=== PATIENT | female | born 1950 | race Caucasian/White ===

== ENCOUNTER 2017-03-05 09:28 | Outpatient (CLI) | payer MEDICARE, BC | END 2017-03-05 09:29 | disposition home or self-care (01) | LOC: BICBD 09:28 | PROVIDERS: ATTEND Internal Medicine | DX: Z13.820 Encounter for screening for osteoporosis (principal); M85.89 Other specified disorders of bone density and structure, multiple sites; E83.52 Hypercalcemia | CPT/HCPCS: 77080; 80048; 83970 ==

== ENCOUNTER 2017-04-02 07:50 | Outpatient (CLI) | payer MEDICARE, BC | END 2017-04-02 07:51 | disposition home or self-care (01) | LOC: BICULT 07:50 | PROVIDERS: ATTEND Internal Medicine Gastroenterology | DX: R10.11 Right upper quadrant pain (principal); K76.0 Fatty (change of) liver, not elsewhere classified; Z90.49 Acquired absence of other specified parts of digestive tract | CPT/HCPCS: 76700 ==

== ENCOUNTER 2017-06-17 13:00 | Outpatient (CLI) | payer OTHER | END 2017-06-17 13:01 | disposition home or self-care (01) | LOC: DTY/OP 13:00 | PROVIDERS: ATTEND Internal Medicine | DX: E66.9 Obesity, unspecified (principal) | CPT/HCPCS: 97802 ==

== ENCOUNTER 2017-08-18 13:59 | Outpatient (CLI) | payer MEDICARE, BC | END 2017-08-18 14:00 | disposition home or self-care (01) | LOC: BICRAD 13:59 | PROVIDERS: ATTEND Internal Medicine | DX: M25.562 Pain in left knee (principal); M79.672 Pain in left foot ==

== ENCOUNTER 2018-04-05 09:26 | Outpatient (CLI) | payer MEDICARE, BC | END 2018-04-05 09:27 | disposition home or self-care (01) | LOC: BICMAMMO 09:26 | PROVIDERS: ATTEND Internal Medicine | DX: Z12.31 Encounter for screening mammogram for malignant neoplasm of breast (principal); Z80.3 Family history of malignant neoplasm of breast | CPT/HCPCS: 77063; 77067 ==

== ENCOUNTER 2018-12-14 15:09 | Outpatient (CLI) | payer MEDICARE, BC ==
--- NOTE | 2018-12-14 15:38 | RAD ---
Exam: Lumbar spine 2 views HISTORY: Right-sided sciatica. Low back pain. Comparison: None FINDINGS: AP and lateral weightbearing views demonstrate five lumbar type vertebrae. Lumbar spine david tebral body height is maintained. No fracture. Grade 1 retrolisthesis of L2 to upon L3 and L3 upon L4. Vacuum disc phenomenon at L3-L4. Moderate los s of disc space at L2-L3. No evidence of spondylolysis. IMPRESSION: Degenerative changes lumbar spine as above. MRI is recommended. Transcribed Date/Time: 12/14/2018 4:00 PM
--- NOTE | 2018-12-14 15:39 | RAD ---
Exam:2 views right hip HISTORY: Pain. COMPARISON: None FINDINGS: The femoral head is maintained. Hip joint space symmetric. No fracture. IMPRESSION: Unremarkable 2 views right hip
--- NOTE | 2018-12-14 15:47 | RAD ---
Exam: 3 views of the sacroiliac joints HISTORY: Right sided sciatica. FINDINGS: Sacral joints are patent and symmetric. Visualized sacral ala are intact. IMPRESSION: Unremarkable radiographs of the sacral iliac joints.
== END 2018-12-14 15:10 | disposition home or self-care (01) ==
LOC: BICRAD 15:09
PROVIDERS: ATTEND Internal Medicine
DX: M25.551 Pain in right hip (principal); M54.31 Sciatica, right side; M47.816 Spondylosis without myelopathy or radiculopathy, lumbar region
CPT/HCPCS: 72100; 72202

== ENCOUNTER 2019-01-02 09:56 | Outpatient (CLI) | payer MEDICARE, BC ==
--- NOTE | 2019-01-02 11:15 | MRI ---
MRI lumbar spine without contrast: 01/02/2019 COMPARISON: None HISTORY: Lumbar degenerative disc disease, low back pain with right lower extremity radiculopathy TECHNIQUE: Multiplanar multisequence MR imaging of the lumbar spine without contrast FINDINGS: Sagittal STIR imaging demonstrates no focal area of osseous marrow edema. On the basis of 5 lumbar type vertebral bodies, the conus medullaris terminates at L1 level. T12-L1: No significant central canal or neural foraminal stenosis. L1-2: Mild bilateral facet hypertrophy with no significant central canal or neural foraminal stenosis . L2-3: There is disc space narrowing and disc desiccation with anterior osteophyte formation and mild disc bulge. Mild bilateral facet hypertrophy. No significant central canal or neural foraminal stenosis. L3-4: Mild bilateral facet hypertrophy. There is disc space narrowing with disc desiccation and mild disc bulge. There is anterior osteophyte formation. There is severe right-sided neural foraminal stenosis. No significant central canal or left neural foraminal stenosis. L4-5: Bilateral facet hypertrophy with hypertrophy of the ligamentum flavum. Moderate right and sever e left neural foraminal stenosis. No significant central canal stenosis. Disc desiccation. L5-S1: Mild left neural foraminal stenosis. Mild bilateral facet hypertrophy. No significant central canal or right neural foraminal stenosis. Image retroperitoneal structures demonstrate no acute findings. IMPRESSION: Lumbar spine degenerative change as detailed above. Findings include severe left neural f oraminal stenosis at L4-5 and severe right neural foraminal stenosis at L3-4.
== END 2019-01-02 09:57 | disposition home or self-care (01) ==
LOC: BICMRI 09:56
PROVIDERS: ATTEND Internal Medicine
DX: M51.36 Other intervertebral disc degeneration, lumbar region (principal); M47.816 Spondylosis without myelopathy or radiculopathy, lumbar region; M48.061 Spinal stenosis, lumbar region without neurogenic claudication
CPT/HCPCS: 72148

== ENCOUNTER 2019-04-12 11:05 | Outpatient (CLI) | payer MEDICARE, BC ==
--- NOTE | 2019-04-12 11:27 | MMO ---
Bilateral MAMMO Bilat Screen [facility]. CLINICAL HISTORY: Patient is 68 years old and is seen for screening. The patient has no family history of breast cancer. The patient has no personal history of cancer. The patient has a history of bilateral Excisional Biopsy in 1993 - benign. VIEWS: The views performed were: bilateral craniocaudal with tomosynthesis and bilateral mediolateral oblique with tomosynthesis. FILMS COMPARED: The present examination has been compared to prior imaging studies performed at [facility] on 11/15/2009, 03/31/2011, 06/25/2016 and 04/05/2018. This study has been interpreted with the assistance of computer-aided detection. MAMMOGRAM FINDINGS: The breasts are heterogeneously dense, which could obscure a lesion on mammography. There are stable benign appearing calcifications seen in both breasts. There are no suspicious masses, suspicious calcifications, or new areas of architectural distortion. IMPRESSION: THERE IS NO MAMMOGRAPHIC EVIDENCE OF MALIGNANCY. A ROUTINE FOLLOW-UP MAMMOGRAM IN 1 YEAR IS RECOMMENDED. THE RESULTS OF THIS EXAM WERE SENT TO THE PATIENT. ACR BI-RADS Category 2 - Benign finding MAMMOGRAPHY NOTE: 1. A negative mammogram report should not delay a biopsy if a dominant of clinically suspicious mass is present. 2. Approximately 10% to 15% of breast cancers are not detected by mammography. 3. Adenosis and dense breasts may obscure an underlying neoplasm. Reported by: ELA VERMA MD Electonically Signed: [id number]
== END 2019-04-12 11:06 | disposition home or self-care (01) ==
LOC: BICMAMMO 11:05
PROVIDERS: ATTEND Internal Medicine
DX: Z12.31 Encounter for screening mammogram for malignant neoplasm of breast (principal); Z91.89 Other specified personal risk factors, not elsewhere classified
CPT/HCPCS: 77063; 77067

== ENCOUNTER 2019-06-30 09:36 | Outpatient (CLI) | payer MEDICARE, BC ==
--- NOTE | 2019-06-30 13:35 | RAD ---
RIGHT CLAVICLE TWO VIEW: 06/30/19 HISTORY: Pain. COMPARISON: None. FINDINGS: Tendon suture anchors of the right femoral head with large subcortical cyst of the greater tuberosity . Mild degenerative disease of the acromioclavicular joint. Ribs are intact. IMPRESSION: No acute osseous abnormality. POS: HOME
== END 2019-06-30 09:37 | disposition home or self-care (01) ==
LOC: BICRAD 09:36
PROVIDERS: ATTEND Internal Medicine
DX: M89.8X1 Other specified disorders of bone, shoulder (principal)

== ENCOUNTER 2019-08-08 13:06 | Outpatient (CLI) | payer MEDICARE, BC ==
--- NOTE | 2019-08-08 13:34 | BD ---
EXAM: DEXA bone density examination HISTORY: 68-year-old postmenopausal female for screening COMPARISON: None FINDINGS: L1--bone mineral density 0.850 g/sq cm; T score -1.3 L2--bone mineral density 0.982 g/sq cm; T score -0.4 L3--bone mineral density 1.044 g/sq cm; T score -0.4 L4--bone mineral density 0.941 g/sq cm; T score -1.1 Total L1-L4--bone mineral density 0.956 g/sq cm; T score -0.8 Left femoral neck--bone mineral density0.701; T score -1.3 Total proximal left femur--bone mineral density 0.843; T score -0.8 IMPRESSION: Osteopenia. This patient has a 10 year WHO fracture risk of a major osteoporotic fracture of 8.4% and of a hip fracture of 0.9%.
== END 2019-08-08 13:07 | disposition home or self-care (01) ==
LOC: BICMAMMO 13:06
PROVIDERS: ATTEND Internal Medicine
DX: Z13.820 Encounter for screening for osteoporosis (principal); Z78.0 Asymptomatic menopausal state; M85.852 Other specified disorders of bone density and structure, left thigh
CPT/HCPCS: 77080

== ENCOUNTER 2019-08-14 10:44 | Outpatient (CLI) | payer MEDICARE, BC ==
--- NOTE | 2019-08-14 11:24 | RAD ---
Exam: 5 views cervical spine HISTORY: Cervical radiculopathy. Comparison none FINDINGS: AP, open-mouth, base of skull, swimmer's and lateral view of the cervical spine demonstrate preservation of vertebral body height. No fracture. Mild loss of disc space height ossified formation at C5-C6 and C6-C7. Predental space is normal. No prevertebral soft tissue swelling The cervical thoracic junction appears to be normal on the lateral swimmer's view In the AP projection mild facet arthropathy, left greater than right. No malalignment Lateral masses of C1 and C2 articulate appropriately. Limited evaluation odontoid process on the basi s: Open-mouth view. Grossly no abnormality IMPRESSION: 1. No fracture 2. Degenerative changes in the lower cervical line. MRI if clinically warranted.
== END 2019-08-14 10:45 | disposition home or self-care (01) ==
LOC: BICRAD 10:44
PROVIDERS: ATTEND Internal Medicine
DX: M47.22 Other spondylosis with radiculopathy, cervical region (principal)
CPT/HCPCS: 72040

== ENCOUNTER 2020-08-22 12:12 | Outpatient (CLI) | payer MEDICARE, BC ==
[~2020-08-22 12:12] MED LIST: Iopamidol-370 76% 500 ML 1 ML ONE
== END 2020-08-22 12:13 | disposition home or self-care (01) ==
LOC: BICCT 12:12
PROVIDERS: ATTEND Internal Medicine
DX: R10.11 Right upper quadrant pain (principal); R14.0 Abdominal distension (gaseous); K76.0 Fatty (change of) liver, not elsewhere classified
CPT/HCPCS: 74177

== ENCOUNTER 2021-02-07 10:50 | Outpatient (CLI) | payer MEDICARE, BC | END 2021-02-07 10:51 | disposition home or self-care (01) | LOC: BICRAD 10:50 | PROVIDERS: ATTEND Internal Medicine Rheumatology | DX: M79.641 Pain in right hand (principal); M79.642 Pain in left hand; M19.042 Primary osteoarthritis, left hand; M19.041 Primary osteoarthritis, right hand; M21.941 Unspecified acquired deformity of hand, right hand ==

== ENCOUNTER 2021-08-07 13:45 | Outpatient (CLI) | payer MEDICARE, BC | END 2021-08-07 13:46 | disposition home or self-care (01) | LOC: BICMAMMO 13:45 | PROVIDERS: ATTEND Internal Medicine | DX: Z13.820 Encounter for screening for osteoporosis (principal); N64.4 Mastodynia; Z78.0 Asymptomatic menopausal state; M85.89 Other specified disorders of bone density and structure, multiple sites | CPT/HCPCS: 76642; 77066; 77080; G0279 ==

== ENCOUNTER 2021-10-21 09:26 | Outpatient (CLI) | payer MEDICARE, BC | END 2021-10-21 09:27 | disposition home or self-care (01) | LOC: BICULT 09:26 | PROVIDERS: ATTEND Internal Medicine Gastroenterology | DX: K76.0 Fatty (change of) liver, not elsewhere classified (principal); R10.13 Epigastric pain | CPT/HCPCS: 36415; 76705; 80053; 80061 ==

== ENCOUNTER 2022-06-08 11:02 | Outpatient (CLI) | payer MEDICARE, BC ==
[~2022-06-08 11:02] MED LIST changes: +Iopamidol 370 76% 100 ML VIAL ONE; -Iopamidol-370 76% 500 ML 1 ML ONE
== END 2022-06-08 11:03 | disposition home or self-care (01) ==
LOC: BICCT 11:02
PROVIDERS: ATTEND Internal Medicine Gastroenterology
DX: R10.13 Epigastric pain (principal); K76.0 Fatty (change of) liver, not elsewhere classified; K57.30 Diverticulosis of large intestine without perforation or abscess without bleeding
CPT/HCPCS: 74177; 82565

== ENCOUNTER 2022-10-08 09:47 | Outpatient (CLI) | payer MEDICARE, BC | END 2022-10-08 09:48 | disposition home or self-care (01) | LOC: BICMAMMO 09:47 | PROVIDERS: ATTEND Internal Medicine | DX: Z12.31 Encounter for screening mammogram for malignant neoplasm of breast (principal); Z80.3 Family history of malignant neoplasm of breast; Z91.89 Other specified personal risk factors, not elsewhere classified | CPT/HCPCS: 77063; 77067 ==

== ENCOUNTER 2023-07-16 10:24 | Outpatient (CLI) | payer MEDICARE, BC | END 2023-07-16 10:25 | disposition home or self-care (01) | LOC: BICRAD 10:24 | PROVIDERS: ATTEND Family Medicine | DX: J40 Bronchitis, not specified as acute or chronic (principal); J98.4 Other disorders of lung | CPT/HCPCS: 71046 ==

== ENCOUNTER 2023-07-23 10:03 | Outpatient (CLI) | payer MEDICARE, BC | END 2023-07-23 10:04 | disposition home or self-care (01) | LOC: BICRAD 10:03 | PROVIDERS: ATTEND Internal Medicine | DX: R05.9 Cough, unspecified (principal) | CPT/HCPCS: 71046 ==

== ENCOUNTER 2023-08-25 08:38 | Outpatient (CLI) | payer MEDICARE, BC | END 2023-08-25 08:39 | disposition home or self-care (01) | LOC: CT 08:38 | PROVIDERS: ATTEND Family Medicine | DX: J98.4 Other disorders of lung (principal) | CPT/HCPCS: 71260 ==

== ENCOUNTER 2023-10-13 09:32 | Outpatient (CLI) | payer MEDICARE, BC | END 2023-10-13 09:33 | disposition home or self-care (01) | LOC: BICMAMMO 09:32 | PROVIDERS: ATTEND Internal Medicine | DX: Z12.31 Encounter for screening mammogram for malignant neoplasm of breast (principal); Z78.0 Asymptomatic menopausal state; M85.89 Other specified disorders of bone density and structure, multiple sites; Z80.3 Family history of malignant neoplasm of breast; Z91.89 Other specified personal risk factors, not elsewhere classified | CPT/HCPCS: 77063; 77067; 77080 ==

== ENCOUNTER 2024-03-03 15:30 | Outpatient (CLI) | payer MEDICARE, BC | END 2024-03-03 15:31 | disposition home or self-care (01) | LOC: BICRAD 15:30 | PROVIDERS: ATTEND Nurse Practitioner Family | DX: M25.561 Pain in right knee (principal); M17.11 Unilateral primary osteoarthritis, right knee ==

== ENCOUNTER 2024-11-02 09:44 | Outpatient (CLI) | payer MEDICARE, BC | END 2024-11-02 09:45 | disposition home or self-care (01) | LOC: BICMAMMO 09:44 | PROVIDERS: ATTEND Internal Medicine | DX: Z12.31 Encounter for screening mammogram for malignant neoplasm of breast (principal); Z80.3 Family history of malignant neoplasm of breast; Z91.89 Other specified personal risk factors, not elsewhere classified | CPT/HCPCS: 77063; 77067 ==